=== PATIENT | male | born 1945 | race Caucasian/White ===

== ENCOUNTER 2019-04-09 12:41 | Inpatient (IN) | payer MEDICARE, OTHER ==
[2019-04-09] MEDS ORDERED: Docusate Sodium 100 MG Cap PO PRN (18:19)
[2019-04-09] MEDS ORDERED: Acetaminophen 325 MG Tab PO PRN (18:19)
[2019-04-09] MEDS: oxyCODONE 5 MG Tab**OWN MED PO PRN (18:37)
[2019-04-09] MEDS: CYCLOBENZAPRINE 10 MG PO PRN (19:36)
[2019-04-09] MEDS: APIXABAN 2.5 MG PO SCH (20:54)
[2019-04-09] MEDS: ROSUVASTATIN 5 MG PO SCH (20:55)
--- NOTE | 2019-04-09 22:11 | HP ---
HISTORY OF PRESENT ILLNESS: The patient is a 74-year-old gentleman who recently had right total hip arthroplasty in [place] yesterday, who was admitted to swing bed here in [facility] for postop management and physical therapy. He is still complaining of some hip pain postoperatively and some spasm, but otherwise he has been doing well. He denies any chest pain, shortness of breath, fever, chills, abdominal pain, or any other complaints. PAST MEDICAL HISTORY: Remarkable for recent right hip arthroplasty, history of BPH, chronic low back pain. FAMILY HISTORY: Noncontributory. SOCIAL HISTORY: The patient lives by himself. He is nonsmoker. No alcohol abuse. MEDICATIONS: On discharge from [place] are oxycodone 10 mg q.4 hours p.r.n., Crestor 5 mg at bedtime, cyclobenzaprine 10 mg t.i.d. p.r.n. and Eliquis 2.5 mg b.i.d. ALLERGIES: No known drug allergies. PHYSICAL EXAMINATION: General: The patient is very pleasant. He is alert and oriented, in mild to moderate distress from the recent right hip total arthroplasty. Vital Signs: Blood pressure is 129/58, pulse of 87, respiration of 18, saturation is 99% on room air, temperature is 98.4. HEENT: Normocephalic. There are pink palpebral conjunctivae. Sclerae anicteric. No JVD. No lymphadenopathy. Heart: Regular rate and rhythm. Normal S1 and S2. No gallops. No rubs. Lungs: Equal bilaterally. No crackles, no wheezing. Abdomen: Soft, nontender. Bowel sounds positive. Extremities: Negative for any pedal edema. No calf tenderness. IMPRESSION: 1. Status post right total hip arthroplasty. 2. Dyslipidemia. 3. Chronic low back pain. 4. Benign prostatic hyperplasia. PLAN: We will continue with his present management and we will have PT and OT see the patient for evaluation and management. [facility] /[id number]
[2019-04-10] MEDS: oxyCODONE 5 MG Tab**OWN MED PO PRN ×4 (01:04→16:15)
[2019-04-10] MEDS: APIXABAN 2.5 MG PO SCH ×2 (09:40→22:05)
[2019-04-10] MEDS: CYCLOBENZAPRINE 10 MG PO PRN ×2 (09:46→22:53)
[2019-04-10] MEDS ORDERED: Docusate Sodium 100 MG Cap **OWN MED PO PRN (17:05)
[2019-04-10] MEDS ORDERED: ACETAMINOPHEN 325 MG PO PRN (17:06)
[2019-04-10] MEDS: Docusate Sodium 100 MG Cap **OWN MED PO PRN (17:59)
[2019-04-10] MEDS: ACETAMINOPHEN 325 MG PO PRN (18:00)
[2019-04-10] MEDS: ROSUVASTATIN 5 MG PO SCH (22:05)
[2019-04-11] MEDS: oxyCODONE 5 MG Tab**OWN MED PO PRN ×4 (01:18→17:04)
[2019-04-11] MEDS: ACETAMINOPHEN 325 MG PO PRN ×2 (04:28→09:52)
[2019-04-11] MEDS: CYCLOBENZAPRINE 10 MG PO PRN ×2 (04:29→17:06)
[2019-04-11] MEDS: APIXABAN 2.5 MG PO SCH ×2 (07:59→22:08)
[2019-04-11] MEDS: Docusate Sodium 100 MG Cap **OWN MED PO PRN (17:06)
[2019-04-11] MEDS: ROSUVASTATIN 5 MG PO SCH (22:07)
[2019-04-12] MEDS: oxyCODONE 5 MG Tab**OWN MED PO PRN ×5 (01:06→22:27)
[2019-04-12 06:28] LABS: ANION GAP 11.2; CHLORIDE,CL 99 mmol/L (101-111); SODIUM,NA 135 mmol/L (135-145)
[2019-04-12] MEDS: CYCLOBENZAPRINE 10 MG PO PRN (07:48)
[2019-04-12] MEDS: APIXABAN 2.5 MG PO SCH ×2 (08:52→20:47)
[2019-04-12] MEDS ORDERED: Bisacodyl 10 MG Supp RECTAL PRN (18:20)
[2019-04-12] MEDS ORDERED: Bisacodyl 5 MG Tab PO PRN (18:21)
[2019-04-12] MEDS ORDERED: OXYCODONE 10 MG PO PRN (18:53)
[2019-04-12] MEDS ORDERED: BISACODYL 10 MG RECTAL PRN ×2 (18:56→18:58)
[2019-04-12] MEDS ORDERED: BISACODYL 5 MG PO PRN ×2 (18:56→18:58)
[2019-04-12] MEDS ORDERED: Docusate Sodium/Sennosides 50-8.6 MG Tab **OWN MED PO PRN (18:57)
[2019-04-12] MEDS: ROSUVASTATIN 5 MG PO SCH (20:48)
[2019-04-12] MEDS: Docusate Sodium/Sennosides 50-8.6 MG Tab **OWN MED PO PRN (22:30)
[2019-04-13] MEDS: oxyCODONE 5 MG Tab**OWN MED PO PRN (08:01)
[2019-04-13] MEDS: CYCLOBENZAPRINE 10 MG PO PRN (08:01)
[2019-04-13] MEDS: APIXABAN 2.5 MG PO SCH ×2 (08:01→20:32)
[2019-04-13] MEDS: OXYCODONE 10 MG PO PRN ×2 (14:17→20:30)
[2019-04-13] MEDS: ROSUVASTATIN 5 MG PO SCH (20:33)
[2019-04-13] MEDS: Docusate Sodium/Sennosides 50-8.6 MG Tab **OWN MED PO PRN (20:36)
[2019-04-14] MEDS: OXYCODONE 10 MG PO PRN ×2 (02:43→21:00)
[2019-04-14] MEDS: APIXABAN 2.5 MG PO SCH ×2 (08:58→20:53)
[2019-04-14] MEDS: ACETAMINOPHEN 325 MG PO PRN ×3 (08:59→17:07)
[2019-04-14] MEDS: CYCLOBENZAPRINE 10 MG PO PRN (14:18)
--- OUTSIDE RECORDS SUMMARY | 2019-04-14 14:58 | XMSREPORT ---
:1945 Author Organization [facility] Address [facility] [address] [place] [address] Care Team Providers Name Role Phone Provider, No Attributed RESOURCE Attributed Provider Unavailable Yajaira Fajardo MD Primary Care Provider Reason for Visit Auth/Cert (Routine) Status Reason Specialty Diagnoses / Procedures Referred By Contact Referred To Contact Diagnoses Unilateral primary osteoarthritis, unspecified hip Ernesto Roe, Procedures ARTHROPLASTY ACETABULAR PROXIMAL FEMORAL PROSTHETIC REPLACE COBY ASHLEY MD [address] [place] [address] Encounter Details Date Type Department Care Team Description 04/08/2019 - Hospital Encounter [facility] ANGEL Roe, Hip arthritis 04/09/[address] MD Ernesto [address] [place] [address] [place] [address] [phone] Allergies No Known Allergiesdocumented as of this encounter (statuses as of 04/09/2019) Medications Medication Sig Dispensed Refills Start Date End Date Status rosuvastatin (CRESTOR) Take 5 mg by 0 01/17/2019 Active 5 mg tablet mouth every night at bedtime apixaban (ELIQUIS) 2.5 Take 1 tablet 54 tablet 0 04/09/2019 Active MG tabletIndications: (2.5 mg) by mouth Prophylaxis of DVT in 2 times a day Orthopedic Surgery Indications: Prophylaxis of Deep Vein Thrombosis in Orthopedic Surgery cyclobenzaprine Take 1 tablet (10 10 tablet 0 04/09/2019 04/13/2020 Active (FLEXERIL) 10 mg mg) by mouth 3 tabletIndications: times a day as Status post total needed for muscle replacement of right spasm hip oxyCODONE (OXY-IR) 5 Take 1 to 2 30 tablet 0 04/09/2019 04/14/2019 Active mg tablet (immediate tablets (5-10 mg) release)Indications: by mouth Every 4 Status post total hours as needed replacement of right for moderate pain hip or severe pain documented as of this encounter (statuses as of 04/09/2019) Active Problems Problem Noted Date Unilateral inguinal hernia without obstruction or gangrene 11/06/2015 Overview: Left Osteoarthrosis, hip 12/09/2012 Rising PSA level 01/31/2012 documented as of this encounter (statuses as of 04/09/2019) Resolved Problems Problem Noted Date Resolved Date Clot retention of urine 03/19/2013 03/24/2013 Urinary retention 02/24/2013 03/24/2013 BPH associated with nocturia 01/31/2012 03/24/2013 documented as of this encounter (statuses as of 04/09/2019) Immunizations Name Administration Dates Next Due FLU VACCINE HIGH DOSE 02/24/2019, 01/24/2017, 01/04/2016, 65YR+(Fluzone) 02/19/2015, 01/02/2014, 01/15/2013 documented as of this encounter Social History Tobacco Use Types Packs/Day Years Used Date Former Smoker Smokeless Tobacco: Never Used Comments: quit 30 yrs. ago Alcohol Use Drinks/Week oz/Week Comments Yes 3 Glasses of wine 3.0 very little Sexually Active Control Partners Comments Not Currently Sex Assigned at Date Recorded Not on file Job Start Date Occupation Industry Not on file Not on file Not on file Travel History Travel Start Travel End No recent travel history available. documented as of this encounter Last Filed Vital Signs Vital Sign Reading Time Taken Comments Blood Pressure 123/72 04/09/2019 12:15 PM [employer] Pulse 83 04/09/2019 12:15 PM [employer] Temperature 37.4 C (99.3 F) 04/09/2019 12:15 PM [employer] Respiratory Rate 16 04/09/2019 12:15 PM J[employer] Oxygen Saturation 95% 04/09/2019 12:15 PM J[employer]ET [employer]ER Inhaled Oxygen Concentration - - Weight 92.8 kg (204 lb 9.4 oz) 04/08/2019 6:05 AM J[employer]ET [employer]ER Height 182.9 cm (6' 0.01") 04/08/2019 6:05 AM JACKET [employer]ER Body Mass Index 27.74 04/08/2019 6:05 AM JACKET PREPARER documented in this encounter Functional Status Functional Status Response Date of Assessment Is the person deaf or does he/she have serious difficulty No 04/02/2019 hearing? Is this person blind or does he/she have difficulty No 04/02/2019 seeing even when wearing glasses? Do you have difficulty with walking, balance, climbing No 04/02/2019 stairs, or had a fall in the last 3 months? Does the patient have difficulty dressing or bathing? No 04/02/2019 Because of a physical, mental, or emotional condition; No 04/02/2019 does this person have difficulty doing errands alone such as visiting a doctor's office or shopping? Cognitive Status Response Date of Assessment Because of a physical, mental, or emotional condition; No 04/02/2019 does this person have serious difficulty concentrating, remembering, or making decisions? documented as of this encounter Discharge Summaries Not on filedocumented in this encounter Discharge Instructions Polly Beck RN - 04/09/2019Preventing Blood Clots (Deep Vein Thrombosis) In the days and weeks after surgery, you have a higher chance of developing a deep vein thrombosis (DVT). This is a condition in which a blood clot or thrombus develops in a deep vein. They are most common in the leg. But, a DVT may develop in an arm, or another deep vein in the body. A piece of the clot, called an embolus, can separate from the vein and travel to the lungs. A blood clot in the lungsis called a pulmonary embolus (PE). This can cut off the flow of blood. It is a medical emergency and may cause . Deep vein thrombosis can occur even after you go home. Follow all instructions from your health careprovider. The following are some general guidelines about DVT prevention: Anticoagulant medication. If an anticoagulant was prescribed, make sure you follow all directionsabout taking it. Be sure you know what foods and medicines may interact. Also, ask your health care provider what to do if you forget to take a dose. Compression stockings. Your health care provider will tell you how often to wear and remove the stockings. Follow all instructions closely. Each time you remove your stockings, check your legs and feet for reddened areas or sores. If you see any changes, call your health care provider right away. Returning to activity. Follow all instructions about returning to activities. Be as active as youcan. This improves blood flow and helps prevent a clot from forming. When in bed or in a chair, continue with the ankle exercises you did in the hospital. Elevate your extremity above the level of yourheart to help prevent swelling. documented in this encounter Medications at Time of Discharge Medication Sig Dispensed Refills Start Date End Date apixaban (ELIQUIS) 2.5 MG Take 1 tablet (2.5 54 tablet 0 04/09/2019 tabletIndications: mg) by mouth 2 times Prophylaxis of DVT in a day Indications: Orthopedic Surgery Prophylaxis of Deep Vein Thrombosis in Orthopedic Surgery cyclobenzaprine Take 1 tablet (10 10 tablet 0 04/09/2019 04/13/2020 (FLEXERIL) 10 mg mg) by mouth 3 times tabletIndications: Status a day as needed for post total replacement of muscle spasm right hip oxyCODONE (OXY-IR) 5 mg Take 1 to 2 tablets 30 tablet 0 04/09/20192018 tablet (immediate (5-10 mg) by mouth release)Indications: Every 4 hours as Status post total needed for moderate replacement of right hip pain or severe pain rosuvastatin (CRESTOR) 5 Take 5 mg by mouth 0 01/17/2019 mg tablet every night at bedtime documented as of this encounter Progress Notes Xander Umana PA - 04/09/2019 8:47 AM CST Ortho Progress Note Chandrakant Rojas is a 74yr male here for 1 Day Post-Op, Procedure(s): RIGHT TOTAL HIP ARTHROPLASTY. Patient of BP 104/67 | Pulse 70 | Temp 98 F (36.7 C) | Resp 16 | Ht 1.829 m (6' 0.01") | Wt 92.8 kg (204 lb 9.4 oz) | SpO2 96% | BMI 27.74 kg/m Maximum Temperatures (last 24 hours) Temperature Maximum Max Temp 98.5 F (36.9 C) { Lab Results Component Value Date HEMOGLOBIN 12.4 (L) 04/09/2019 Patient doing ok, complains of mild pain. Had a lot of spasm overnight. Better now. The patient denies nausea. The wound has No drainage. Compartments soft and non-tender. Distal NV intact. Will continue with Physical Therapy today. Continue care plan. Planning swingbed in [place] at discharge. eisy Groves, PHARM REAL ESTATE AGENCY PRINCIPAL - 04/08/2019 6:05 AM CST 04/08/2019 6:05 AM -- Patient was seen by the pharmacy med reconciliation team and HOME MEDICATIONS have been reconciled and updated to match the patient's home usage. Medications Added: None Medications Deleted: None Medications Changed: None Updated last dose Prior to Admission Medications Prescriptions Last Dose Informant Patient Reported? Taking? rosuvastatin (CRESTOR) 5 mg tablet 04/07/2019 at 1730 Self Yes Yes Sig: Take 5 mg by mouth every night at bedtime Facility-Administered Medications: None Deisy Groves, Records Management Engineer documented in this encounter Plan of Treatment Date Type Specialty Care Team Description 04/24/2019 Office Visit Orthopedics Xander Umana PA [address] [place] [phone] 05/05/2019 Office Visit Audiology Mary Lynne MA [address] [place] [address] 05/20/2019 Office Visit Orthopedics Ernesto Roe MD [address] [place] [address] [phone] Name Type Priority Associated Diagnoses Date/Time TISSUE EXAM PATH Routine Hip arthritis 04/08/2019 7:26 AM JACKET PREPARER Name Type Priority Associated Diagnoses Order Schedule TISSUE EXAM PATH Routine Hip arthritis ONCE for 1 Occurrences starting 04/08/2019, 1 completed HEMOGLOBIN Lab Routine Early AM draw for labs for 3 Days starting 04/09/2019 until 04/11/2019, 1 completed documented as of this encounter Implants Implanted Type Area Bead Cutter Device Shelf Model / Identifier Expiration Serial / Lot Date Hip Shell Contm Uni Hl Szkk 56 N [id number] Ea - Sn/A Total Jt Left: ARCHANA 11/13/202236-7112-241-00 / Implanted: Qty: 1 on 01/14/2013 by Jaron Meesk MD at [facility] Hip HIP N/A / [id number] Hip Dome Hl Plug Zm N Ea - Sn/A Total Jt Left: ARCHANA / Implanted: Qty: 1 on 01/14/2013 by Jaron Meeks MD at [facility] Hip HIP N/A / [id number] Hip Lnr Vit E Neut Zm Kk 40mm N [id number] Ea - Sn/A Total Jt Left: ARCHANA 08/14/201700-1322-226- / Implanted: Qty: 1 on 01/14/2013 by Jaron Meeks MD at [facility] Hip HIP N/A / [id number] Hip Fem Stem Plas Zm Sz12.5 N 7711 Ea - Sn/A Total Jt Left: ARCHANA 7711-12 / Implanted: Qty: 1 on 01/14/2013 by Jaron Meeks MD at [facility] Hip HIP N/A / [id number] Hip Fem Head Zm 40/0m Taper N 97-8660-334- Ea - Sn/A Total Jt Left: ARCHANA 07/14/202299-9303-521- / Implanted: Qty: 1 on 01/14/2013 by Jaron Meeks MD at [facility] Hip HIP N/A / [id number] Hip Shell Tridii Trit [id number] N -04-58f Ea1 - [id number] Total Jt Right: LILIBETH 10/30/2023 [id number] / Implanted: Qty: 1 on 04/08/2019 by Ernesto Roe MD at [facility] Hip HIP / [id number] Description:Exp 2023-10-30 Hip Lnr Trid X3 Pe 10d 36mm F N 623-10-36f Ea1 - [id number] Total Jt Hip Right: HIP LILIBETH 12/29/2023 623-10-36F / Implanted: Qty: 1 on 04/08/2019 by Ernesto Roe MD at [facility] / [id number] Description:Exp 2023-12-29 Hip Hd V40 [place] Cer 36mm +0 N 6570-0-136 Ea1 - [id number] Total Jt Hip Right: HIP LILIBETH 02/26/2024 6570-0-136 / Implanted: Qty: 1 on 04/08/2019 by Ernesto Roe MD at [facility] / [id number] Description:Exp 2024-02-26 Hip Stem Acldii 132d Sz7 N 1285-0249 Ea1 - [id number] Total Jt Hip Right: HIP LILIBETH 10/21/2022 4232-1899 / Implanted: Qty: 1 on 04/08/2019 by Ernesto Roe MD at [facility] / [id number] Description:Exp 2022-10-21 Explanted Type Area Bead Cutter Device Shelf Model / Identifier Expiration Serial / Date Lot Sd Schulz Sglster1/8 N [id number] Ea1 - [id number] [facility] [id number] / Implanted: Qty: 4 Other MEDICAL / Explanted: Qty: 4 on 04/08/2019 at [facility] documented as of this encounter Procedures Procedure Name Priority Date/Time Associated Comments Diagnosis COLLECT AND HOLD Routine 04/09/2019 6:22 Results for this GREEN TOP TUBE AM [employer]ER procedure are in the results section. HEMOGLOBIN Routine 04/09/2019 6:22 Results for this AM [employer]ER procedure are in the results section. XRAY PELVIS 1 OR 2 Routine 04/08/2019 8:46 Results for this VIEWS AM [employer]ET [employer]ER procedure are in the results section. XRAY PELVIS 1 OR 2 Routine 04/08/2019 8:01 Results for this VIEWS AM [employer]ET [employer]ER procedure are in the results section. ARTHROPLASTY HIP 04/08/2019 6:31 Hip arthritis AM JACKET [employer]PARER Special Needs *X* patient would like 1st case if possible documented in this encounter Results COLLECT AND HOLD GREEN TOP TUBE (04/09/2019 6:22 AM JACKET PREPARER) Collect and Hold Comment: RECEIVED [facility] Specimen Blood Performing Organization Address City/[facility]/Zipcode Phone Number [facility] [address] [place] [phone] HEMOGLOBIN (04/09/2019 6:22 AM JACKET PREPARER) Hemoglobin 12.4 (L) 13.5 - 17.5 g/dL [facility] Specimen Blood Performing Organization Address City/[facility]/Zipcode Phone Number [facility] [address] [place] [phone] XRAY PELVIS 1 OR 2V (04/08/2019 8:46 AM JACKET PREPARER)Only the most recent of2 resultswithin the time period is included. Specimen Narrative Performed At [facility] Patient Name: CHANDRAKANT ROJAS Date of :1945 Procedure: XRAY PELVIS 1 OR 2 VIEWS Date of Service: 04/08/2019 EXAM: XRAY PELVIS 1 OR 2 VIEWS INDICATION:post op PARUL COMPARISON(S): Earlier same date. FINDINGS: Portable view of the pelvis was performed. Comparison made to earlier the same day. Postsurgical changes of right hip arthroplasty. Femoral sizing devices been replaced with the femoral component of the hip arthroplasty. Hardware is intact and in good position. Stable left hip arthroplasty. Finalized by: Giovanny Thomas MD on 04/08/2019 9:08 AM JACKET PREPARER Patient/Procedure Information: [facility] MRN/DARYL: [id number] Order Number: [id number] Accession Number: [id number] Ordering Provider: XANDER UMANA Authorizing Provider: XANDER UMANA Procedure Note Interface, Radiantres - 04/08/2019 9:10 AM JACKET PREPARER Patient Name: CHANDRAKANT ROJAS Date of : 1945 Procedure: XRAY PELVIS 1 OR 2 VIEWS Date of Service: 04/08/2019 EXAM: XRAY PELVIS 1 OR 2 VIEWS INDICATION:post op PARUL COMPARISON(S): Earlier same date. FINDINGS: Portable view of the pelvis was performed. Comparison made to earlier the same day. Postsurgical changes of right hip arthroplasty. Femoral sizing devices been replaced with the femoral component of the hip arthroplasty. Hardware is intact and in good position. Stable left hip arthroplasty. Finalized by: Giovanny Thomas MD on 04/08/2019 9:08 AM JACKET PREPARER Patient/Procedure Information: [facility] MRN/DARYL: [id number] Order Number: [id number] Accession Number: [id number] Ordering Provider: XANDER UMANA Authorizing Provider: XANDER UMANA Performing Organization Address City/State/Zipcode Phone Number [phone] documented in this encounter Visit Diagnoses Diagnosis Status post total replacement of right hip - Primary Hip arthritis Unspecified arthropathy, pelvic region and thigh documented in this encounter Discharge Diagnoses Not on filedocumented in this encounter Administered Medications Medication Order MAR Action Action Date Dose Rate Site acetaminophen (TYLENOL) tablet Given 04/09/2019 12:10 PM JACKET PREPARER 650 mg 650 mg 650 mg, Oral, Every six hours, First dose on Sun04/08/19 at 1200, Until Discontinued, Post - Op, Alternate with tramadol (ULTRAM); Total dose of acetaminophen from all acetaminophen containing products should not exceed 4 grams (4000 mg) per day., Given 04/09/2019 6:26 AM JACKET PREPARER 650 mg Given 04/08/2019 10:56 PM JACKET PREPARER 650 mg apixaban (ELIQUIS) tablet 2.5 mg Given 04/09/2019 8:10 AM JACKET PREPARER 2.5 mg 2.5 mg, Oral, Two times a day, 70 doses, First dose on Sun04/09/19 at 0800, Last dose on Sun05/13/19 at 2000, Post - Op bisacodyl (DULCOLAX) enteric coated tablet 5 Given 04/09/2019 8:10 AM JACKET PREPARER 5 mg mg 5 mg, Oral, Two times a day prn, Starting Sun04/08/19 at 0951, Until Discontinued, constipation, Post - Op, SECOND choice or per patient preference, cyclobenzaprine (FLEXERIL) tablet 10 mg Given 04/09/2019 11:01 AM JACKET PREPARER 10 mg 10 mg, Oral, Three times a day prn, Starting Sun04/09/19 at 1038, Until Discontinued, muscle spasm oxyCODONE (OXY-IR) tablet 5-10 mg Given 04/09/2019 12:10 PM JACKET PREPARER 10 mg 5-10 mg, Oral, Every four hours prn, Starting 12/17/19 at 0951, Until Discontinued, moderate pain, severe pain, Post - Op, For patients with moderate pain, pain rating of 4-6, give Oxycodone 5mg PO every 4 hours PRN. For patients with severe pain, pain rating of 7-10, give Oxycodone 10mg PO every 4 hours PRN., Given 04/09/2019 8:10 AM JACKET PREPARER 5 mg Given 04/08/2019 10:56 PM JACKET PREPARER 10 mg polyethylene glycol (MIRALAX) packet 1 Given 04/09/2019 8:10 AM JACKET PREPARER 1 packet packet 1 packet, Oral, Daily, First dose on Sun04/09/19 at 0900, Until Discontinued, Post - Op, Hold if 2 loose stools occur in the last 24 hours., rosuvastatin (CRESTOR) tablet 5 mg Given 04/08/2019 9:13 PM JACKET PREPARER 5 mg 5 mg, Oral, Bedtime, First dose on Sun04/08/19 at 2100, Until Discontinued senna-docusate sodium Given 04/09/2019 8:10 AM JACKET PREPARER 1 tablet (SENOKOT-S;PERICOLACE) tablet 1 tablet 1 tablet, Oral, Two times a day, First dose on Sun04/08/19 at 0955, Until Discontinued, Post - Op, Hold if 2 loose stools occur in the last 24 hours., Given 04/08/2019 9:13 PM JACKET PREPARER 1 tablet Given 04/08/2019 10:26 AM JACKET PREPARER 1 tablet sodium chloride 0.9% IV solution New Bag 04/09/2019 2:19 AM JACKET PREPARER 100 mL/hr IV, at 100 mL/hr, Continuous, Starting Sun04/08/19 at 0955, Until Discontinued, 1,000 mL, Post - Op New Bag 04/08/2019 6:07 PM JACKET PREPARER 100 mL/hr New Bag 04/08/2019 10:00 AM JACKET PREPARER 100 mL/hr traMADol (ULTRAM) tablet 50 mg Given 04/09/2019 8:55 AM JACKET PREPARER 50 mg 50 mg, Oral, Every six hours, First dose on Sun04/08/19 at 0955, Until Discontinued, Post - Op, Alternate with acetaminophen (TYLENOL). Recommended maximum daily dose of cldPAKvl=456 mg. Recommended maximum daily dose in patients greater than 75 years of age=300 mg, Given 04/09/2019 2:41 AM JACKET PREPARER 50 mg Given 04/08/2019 9:13 PM JACKET PREPARER 50 mg Medication Order MAR Action Action Date Dose Rate Site acetaminophen (TYLENOL) tablet Given 04/08/2019 6:18 AM JACKET PREPARER 1,000 mg 1,000 mg 1,000 mg, Oral, Pre-op, 1 dose, 04/08/19 at 0550, Pre - Op, Total dose of acetaminophen from all acetaminophen containing products should not exceed 4 grams (4000 mg) per day., ceFAZolin (ANCEF) 2000 mg/20 mL sterile Given 04/08/2019 10:57 PM JACKET PREPARER 2,000 mg water IV syringe 2,000 mg, IV, Every eight hours, 2 doses, First dose on Sun04/08/19 at 1500, Last dose on Sun04/08/19 at 2300, 20 mL, PACU - Continue Post-Op, Administer as IV push over 4 minutes., Given 04/08/2019 2:45 PM JACKET PREPARER 2,000 mg gabapentin (NEURONTIN) capsule 600 mg Given 04/08/2019 6:18 AM JACKET PREPARER 600 mg 600 mg, Oral, Pre-op, 1 dose, Sun04/08/19 at 0550, Pre - Op, 1 dose prior to surgery, lactated ringers IV solution New Bag 04/08/2019 7:48 AM JACKET PREPARER IV, at 25 mL/hr, Continuous, Starting Sun04/08/19 at 0650, Until Sun04/08/19 at 0815, 1,000 mL, Pre - Op New Bag 04/08/2019 6:18 AM JACKET PREPARER 25 mL/hr lactated ringers IV solution Already Infusing 04/08/2019 8:26 AM JACKET PREPARER 125 mL/hr IV, at 125 mL/hr, Continuous, Starting Sun04/08/19 at 0840, Until Sun04/08/19 at 0943, 1,000 mL, PACU, TKO current fluids if patient is going to Day Unit / ARU and tolerating PO fluids without nausea., traMADol (ULTRAM) tablet 100 mg Given 04/08/2019 6:18 AM JACKET PREPARER 100 mg 100 mg, Oral, Pre-op, 1 dose, e 04/08/19 at 0550, Pre - Op, Recommended maximum daily dose of qcogrgyf=566 mg. Recommended maximum daily dose in patients 75 years or ijmjo=462 mg., documented in this encounter
[2019-04-14] MEDS: ROSUVASTATIN 5 MG PO SCH (20:53)
[2019-04-15] MEDS: ACETAMINOPHEN 325 MG PO PRN ×5 (03:03→22:24)
[2019-04-15] MEDS: APIXABAN 2.5 MG PO SCH ×2 (09:17→22:23)
--- NOTE | 2019-04-15 10:06 | PN ---
DATE: 04/15/2019 SUBJECTIVE: The patient continues to do well, and the hip pain and spasm have actually gotten better, and he has been working with physical therapy. His bowel movement has been good. He denies any chest pain, shortness of breath, abdominal pain, nausea, vomiting, or other complaints. OBJECTIVE: Vital Signs: Blood pressure is 137/67, pulse 84, respiration of 20, and temperature of 98.2. Heart: Regular rate and rhythm. Normal S1 and S2. No gallops. No rubs. Lungs: Clear. No crackles. No wheezing. Abdomen: Soft and nontender. Bowel sounds positive. Extremities: Negative for any calf tenderness or any significant pedal edema. MEDICATIONS: Reviewed. PLAN: We will continue with his present management and continue with PT and OT. [facility] /[id number]
[2019-04-15] MEDS: CYCLOBENZAPRINE 10 MG PO PRN ×2 (12:47→17:39)
[2019-04-15] MEDS: ROSUVASTATIN 5 MG PO SCH (22:22)
[2019-04-16] MEDS: ACETAMINOPHEN 325 MG PO PRN ×3 (04:34→20:36)
[2019-04-16] MEDS: CYCLOBENZAPRINE 10 MG PO PRN ×3 (04:35→20:36)
[2019-04-16] MEDS: APIXABAN 2.5 MG PO SCH ×2 (08:36→20:35)
[2019-04-16] MEDS: ROSUVASTATIN 5 MG PO SCH (20:36)
[2019-04-17] MEDS: ACETAMINOPHEN 325 MG PO PRN (08:30)
[2019-04-17] MEDS: APIXABAN 2.5 MG PO SCH (08:30)
--- NOTE | 2019-04-17 13:01 | PCM.DCSUM1 ---
Discharge Summary - Hospital Course Free Text/Narrative:: This is a 74 Y/O pleasant Male with past Medical history of Chronic Back Pain, B /L hip pain, Dyslipidemia, CKD stage III, Impaired fasting Glucose, BPH was admitted to swing bed at [facility] for post op management after right hip arthroplasty. He continue PT/OT at this hospital and now ready to go home. He will continue to follow with Orthopedic. - Discharge Data Discharge Date: 04/17/19 Discharge Disposition: Home, Self-Care 01 Condition: Good - Referral to Home Health Primary Care Physician: Ubaldo Fajardo MD - Patient Summary/Data Consults: Consultations 04/09/19 18:19 OT Evaluation and Treatment [CONS] Routine PT Evaluation and Treatment [CONS] Routine - Patient Instructions Diet: Heart Healthy Diet Activity: As Tolerated Showering/Bathing: August Shower Notify Provider of: Fever, Increased Pain, Swelling and Redness, Drainage - Discharge Plan Home Medications: Home Meds Apixaban [Eliquis] 2.5 mg PO BID 04/09/19 [History] Cyclobenzaprine [Flexeril] 10 mg PO TID PRN 04/09/19 [History] Rosuvastatin [Crestor] 5 mg PO BEDTIME 04/09/19 [History] oxyCODONE 5 mg PO Q4HR PRN 04/09/19 [History] oxyCODONE 10 mg PO Q4HR PRN 04/09/19 [History] - Discharge Summary/Plan Comment DC Time >30 min.: Yes Discharge Summary/Plan Comment: This is a 74 y/o Male admitted after right Total hip arthroplasty Impression and Plan: 1. S/P Right total hip arthroplasty: he was admitted after Hip arthroplasty and was seen and evaluated by PT/OT. He is doing well and will be going home today. He will continue to follow with PMD and Ortho as scheduled. - General Info Date of Service: 04/17/19 Admission Dx/Problem (Free Text: admitted to swing Bed: S/P right total hip arthroplasty Functional Status: Reports: Pain Controlled, Tolerating Diet, Ambulating, Urinating - Review of Systems General: Reports: Weakness, Appetite (acceptable). Denies: Fever, Chills HEENT: Denies: Headaches, Sinus Congestion, Sore Throat, Visual Changes Pulmonary: Denies: Shortness of Breath, Cough, Sputum, Wheezing Cardiovascular: Denies: Chest Pain, Dyspnea on Exertion, Edema, Lightheadedness Gastrointestinal: Denies: Abdominal Pain, Constipation, Diarrhea, Difficulty Swallowing, Nausea, Vomiting Genitourinary: Denies: Dysuria, Frequency, Burning, Urgency, Flank Pain Musculoskeletal: Denies: Neck Pain, Shoulder Pain, Foot Pain Skin: Denies: Dryness, Bruising, Pruritis, Rash Neurological: Denies: Confusion, Numbness, Tremors Psychiatric: Denies: Confusion, Anxiety - Patient Data Vitals - Most Recent: Last Vital Signs Temp 36.9 C 04/17/19 07:49 Pulse 86 04/17/19 07:49 Resp 20 04/17/19 07:49 BP 120/63 04/17/19 07:49 Pulse Ox 99 04/17/19 07:49 Weight - Most Recent: 92.193 kg I&O - Last 24 hours: Intake & Output 04/16/19 04/17/19 04/17/19 22:59 06:59 14:59 Intake Total 600 Balance 600 Med Orders - Current: Current Medications Acetaminophen (Tylenol) 650 mg PO Q4H PRN PRN Reason: Pain (Mild 1-3)/fever Last Admin: 04/17/19 08:30 Dose: 650 mg Bisacodyl (Dulcolax) 10 mg RECTAL DAILY PRN PRN Reason: Constipation Last Admin: 04/14/19 06:45 Dose: 10 mg Bisacodyl (Dulcolax) 5 mg PO DAILY PRN PRN Reason: Constipation Last Admin: 04/13/19 08:04 Dose: 5 mg Cyclobenzaprine HCl (Flexeril) 10 mg PO TID PRN PRN Reason: Muscle Spasm Last Admin: 04/16/19 20:36 Dose: 10 mg Docusate Sodium (Colace) 100 mg PO BID PRN PRN Reason: Constipation Last Admin: 04/11/19 17:06 Dose: 100 mg Apixaban 2.5 MgOwn (Med) 2.5 mg PO BID JEFF Last Admin: 04/17/19 08:30 Dose: 2.5 mg Rosuvastatin 5 Mg (Own Med) 5 mg PO BEDTIME JEFF Last Admin: 04/16/19 20:36 Dose: 5 mg Oxycodone 10 Mg (Own Med) 0 each PO Q6H PRN PRN Reason: Pain (severe 7-10) Last Admin: 04/14/19 21:00 Dose: 1 each Senna/Docusate Sodium (Senna Plus) 1 tab PO BID PRN PRN Reason: Constipation Last Admin: 04/13/19 20:36 Dose: 1 tab Discontinued Medications Acetaminophen (Tylenol) 650 mg PO Q4H PRN PRN Reason: Pain (Mild 1-3)/fever Acetaminophen (Tylenol) 650 mg PO Q4H PRN PRN Reason: Pain (Mild 1-3)/fever Bisacodyl (Dulcolax) 10 mg RECTAL DAILY PRN PRN Reason: Constipation Bisacodyl (Dulcolax) 5 mg PO DAILY PRN PRN Reason: Constipation Bisacodyl (Dulcolax) 10 mg RECTAL DAILY PRN PRN Reason: Constipation Bisacodyl (Dulcolax) 5 mg PO DAILY PRN PRN Reason: Constipation Docusate Sodium (Colace) 100 mg PO BID PRN PRN Reason: Constipation Docusate Sodium (Colace) 100 mg PO BID PRN PRN Reason: Constipation Oxycodone 10 Mg (Own Med) 0 each PO Q6H PRN PRN Reason: Pain (severe 7-10) Oxycodone HCl (Oxycodone) 10 mg PO Q4HR PRN PRN Reason: Pain (severe 7-10) Last Admin: 04/13/19 08:01 Dose: 10 mg Senna/Docusate Sodium (Senna Plus) 1 tab PO BID PRN PRN Reason: Constipation Senna/Docusate Sodium (Senna Plus) 1 tab PO BID PRN PRN Reason: Constipation - Exam Quality Assessment: Reports: DVT Prophylaxis. Denies: Supplemental Oxygen General: Reports: Alert, Oriented, Cooperative, No Acute Distress HEENT: Reports: Pupils Equal, Pupils Reactive, Mucous Membr. Moist/[place]nax Neck: Reports: No JVD, No Thyromegaly Lungs: Reports: Clear to Auscultation, Normal Respiratory Effort Cardiovascular: Reports: Regular Rate, Regular Rhythm, Murmurs GI/Abdominal Exam: Normal Bowel Sounds, Soft, Non-Tender, No Organomegaly. No: Guarding, Rigid, Rebound, Tender (Male) Exam: Deferred Rectal (Males) Exam: Deferred Back Exam: Reports: Normal Inspection Extremities: Normal Inspection, No Pedal Edema Skin: Reports: Warm, Dry, Intact Neurological: Reports: No New Focal Deficit Psy/Mental Status: Reports: Alert, Normal Affect, Normal Mood
[2019-04-17] MEDS: CYCLOBENZAPRINE 10 MG PO PRN (13:10)
== END 2019-04-17 18:20 | disposition home or self-care (01) | DRG 561 ==
LOC: UNDOADMIN 17:14 → DL.MS 17:14 → UNDOADMIN 18:19 → UNDODISIN 04-17 18:20
PROVIDERS: ADMIT Internal Medicine; ATTEND Internal Medicine
DX: Z47.1 Aftercare following joint replacement surgery (principal); Z96.641 Presence of right artificial hip joint; N18.3 Chronic kidney disease, stage 3 (moderate); E78.5 Hyperlipidemia, unspecified; G89.29 Other chronic pain; M54.5 Low back pain; N40.0 Benign prostatic hyperplasia without lower urinary tract symptoms; R73.01 Impaired fasting glucose
CPT/HCPCS: 36415; 80048; 81001; 85025; 97110-GP; 97116-GP; 97162-GP; 97165-GO; 97530-GO; 97535-GO; A9270-GY

== ENCOUNTER → 2022-02-06 | Day surgery (SDC) | payer MEDICARE, OTHER ==
[~2022-02-06] MED LIST: Midazolam 1 MG/ML 2 ML SDV IV ONE; fentaNYL 100 MCG/2 ML SDV IV ONE
== END ==
LOC: DL.ENDO 06:00
PROVIDERS: ATTEND Internal Medicine Gastroenterology
DX: K22.2 Esophageal obstruction (principal); L57.0 Actinic keratosis; E78.00 Pure hypercholesterolemia, unspecified; M19.90 Unspecified osteoarthritis, unspecified site; D17.1 Benign lipomatous neoplasm of skin and subcutaneous tissue of trunk; Z98.890 Other specified postprocedural states
CPT/HCPCS: 43235; 43450; J2250; J3010

== ENCOUNTER 2024-07-10 15:49 | Emergency (ER) | payer MEDICARE, OTHER ==
[2024-07-10 16:35] LABS: BASOPHILS PERCENT AUTO 0.7 % (0.0-1.0); EOSINOPHILS PERCENT AUTO 3.9 % (1.0-3.0); HEMATOCRIT 45.7 % (40.0-54.0); HEMOGLOBIN 15.3 g/dL (14.0-18.0); LYMPHOCYTES PERCENT AUTO 50.4 % (20.5-50.1); MEAN CORPUSCULAR HEMOGLOBIN 31.4 pg (27.0-34.0); MEAN CORPUSCULAR HGB CONC 33.5 g/dL (33.0-35.0); MEAN CORPUSCULAR VOLUME 93.6 fL (80-100); MONOCYTES PERCENT AUTO 10.4 % (2-8); NEUTROPHILS PERCENT AUTO 34.6 % (42.2-75.2); PLATELET COUNT,PLT 202 10^3/uL (150-450); RED BLOOD CELL COUNT 4.88 10^6/uL (4.6-6.2); WHITE BLOOD CELL COUNT,WBC 5.6 10^3/uL (5.0-10.0)
[2024-07-10 16:52] LABS: PROTHROMBIN TIME 10.2 SEC (9.0-12.0)
[2024-07-10 17:06] LABS: A/G RATIO 1.2; ALANINE AMINOTRANSFERASE,ALT 24 U/L (16-63); ALKALINE PHOSPHATASE 50 U/L (46-116); ANION GAP 14.8 mEq/L (7-13); ASPARTATE AMNIOTRANSFERASE,AST 23 U/L (15-37); BILIRUBIN TOTAL 0.5 mg/dL (0.2-1.0); BLOOD UREA NITROGEN,BUN 16 mg/dL (7-18); BUN/CREATININE RATIO 10.7 (No establ ref range); CALCIUM 9.6 mg/dL (8.5-10.1); CARBON DIOXIDE,CO2 26 mmol/L (21-32); CHLORIDE,CL 105 mmol/L (98-107); CREATININE 1.49 mg/dL (0.70-1.30); GLUCOSE RANDOM 89 mg/dL (70-99); MAGNESIUM 2.2 mg/dL (1.8-2.4); POTASSIUM,K 4.8 mmol/L (3.5-5.1); PROTEIN TOTAL,TP 7.4 g/dL (6.4-8.2); SODIUM,NA 141 mmol/L (136-145)
[2024-07-10 17:10] LABS: ESTIMATED GFR 47 mL/min (>=60)
== END 2024-07-10 18:14 | disposition home or self-care (01) ==
LOC: DL.ED 15:49
DX: R03.0 Elevated blood-pressure reading, without diagnosis of hypertension (principal); N18.9 Chronic kidney disease, unspecified; E78.00 Pure hypercholesterolemia, unspecified; Z79.899 Other long term (current) drug therapy
CPT/HCPCS: 36415; 70450; 80053; 83735; 84484; 85025; 85610; 87428-QW; 93005; 93010; 99283; 99284

== ENCOUNTER 2025-03-20 14:09 | Emergency (ER) | payer MEDICARE | END 2025-03-20 15:00 | disposition home or self-care (01) | LOC: DL.ED 14:09 | DX: K04.7 Periapical abscess without sinus (principal); E78.00 Pure hypercholesterolemia, unspecified; N18.9 Chronic kidney disease, unspecified; Z79.899 Other long term (current) drug therapy | CPT/HCPCS: 99283 ==